=== PATIENT | female | born 1980 | race Caucasian/White ===

== ENCOUNTER → 2024-11-15 13:16 | Outpatient (BNVA) | payer OTHER, SELFPAY | PROVIDERS: PCP Clinical Nurse Specialist Adult Health; Visit Provider Family Medicine | DX: F44.5 Conversion disorder with seizures or convulsions (principal); H93.19 Tinnitus, unspecified ear; G43.711 Chronic migraine without aura, intractable, with status migrainosus; I63.9 Cerebral infarction, unspecified; R47.89 Other speech disturbances; G40.909 Epilepsy, unspecified, not intractable, without status epilepticus; G47.30 Sleep apnea, unspecified; L71.9 Rosacea, unspecified; R53.82 Chronic fatigue, unspecified; E03.9 Hypothyroidism, unspecified; L73.2 Hidradenitis suppurativa; I72.9 Aneurysm of unspecified site; E11.9 Type 2 diabetes mellitus without complications | CPT/HCPCS: 80053; 80061; 82306; 82607; 83036; 84443; 85025 ==

== ENCOUNTER → 2025-04-18 13:20 | Outpatient (BNVA) | payer OTHER, SELFPAY | PROVIDERS: PCP Family Medicine; Visit Provider Family Medicine | DX: E11.9 Type 2 diabetes mellitus without complications (principal); F44.5 Conversion disorder with seizures or convulsions; L73.2 Hidradenitis suppurativa; R53.82 Chronic fatigue, unspecified; E03.9 Hypothyroidism, unspecified | CPT/HCPCS: 80053; 80061; 82607; 83036; 83721; 84443; 85025 ==